=== PATIENT | female | born 1970 | race Caucasian/White ===

== ENCOUNTER → 2022-10-01 | Outpatient (CLI) | payer SELFPAY ==
--- NOTE | 2022-10-01 07:33 | MRI_ITS ---
HISTORY: Neck pain. Occipital pain, right-sided neck pain. TECHNIQUE: Multiplanar and multisequence MR images of the cervical spine were obtained without contrast. 274 images. COMPARISON: None. FINDINGS: VERTEBRAE: Vertebral body heights maintained. Mild degenerative bone marrow endplate changes at multiple levels particularly C3-4. VERTEBRAL ALIGNMENT: No anterior or posterior subluxation. SPINAL CORD: Cervical cord signal within normal limits. Loss of oval cross-sectional shape of the spinal cord at the C2-C3 level with a mild triangular shape. SOFT TISSUES: No prevertebral fluid collection. INTERVERTEBRAL DISCS: C2-3: Developmentally narrow spinal canal. No significant posterior disc protrusion, central canal stenosis, or foraminal narrowing. C3-4: Mild posterior disc bulge osteophyte complex with uncovertebral and facet arthropathy superimposed on a developmentally narrow spinal canal resulting in mild central canal stenosis and right foraminal narrowing. C4-5: Mild posterior disc bulge osteophyte complex with uncovertebral and facet arthropathy superimposed on a developmentally narrow spinal canal resulting in moderate central canal stenosis and right foraminal narrowing. C5-6: Moderate posterior disc bulge osteophyte complex with uncovertebral and facet arthropathy superimposed on a developmentally narrowed spinal canal resulting in moderate-severe central canal stenosis with cord abutment and moderate left foraminal narrowing. C6-7: Mild posterior disc protrusion resulting in minimal narrowing of the thecal sac and no significant foraminal narrowing . C7-T1: No significant posterior disc protrusion, central canal stenosis, or foraminal narrowing. Small right perineural cysts noted. MRI/Spine Cervical (Routine) IMPRESSION: Multilevel degenerative disc disease superimposed on a developmentally narrow spinal canal resulting in moderate to severe spinal canal stenosis, cord abutment, and foraminal narrowing as above. Mild triangular cross-sectional shape of the upper cervical cord which may be secondary to adhesions or mass effect from small arachnoid cyst. Electronically Signed: Farrah Mcneill MD at 12:01 EDT ,
== END | disposition home or self-care (01) ==
PROVIDERS: Referring Provider Family Medicine; Visit Provider Family Medicine
DX: M54.2 Cervicalgia (principal)
CPT/HCPCS: 72141

== ENCOUNTER → 2023-08-11 | Outpatient (CLI) | payer SELFPAY ==
--- NOTE | 2023-08-11 15:50 | MRI_ITS ---
STUDY: MRI BRAIN WITH AND WITHOUT CONTRAST REASON FOR EXAM: Female, 52 years old. R ARM NUMBNESS, MIGRAINE WITH AURA TECHNIQUE: Standardized multiplanar fat and water weighted pulse sequences were obtained. CLARISCAN 11 CC IV was administered for the contrast portion of the examination. COMPARISON: None. FINDINGS: Normal size of the ventricles and extra-axial spaces for the patient''s age. Normal white matter tracts of the supratentorial brain. Normal bilateral basal ganglia. Normal thalami. There is no extra-axial fluid accumulation. Normal flow voids within the major intracranial circulation suggesting patency by spin echo criteria. Normal venous enhancement. There is no enhancing intra-axial or extra-axial abnormality. Normal sella turcica, pituitary gland, infundibular stalk, optic chiasm and hypothalamus. Normal tectal plate and pineal gland. Normal midbrain, trina and medulla. Normal cerebellum. Normal basal cisterns. Normal bilateral temporal bones. Normal bilateral internal auditory canals. No demonstrated orbital abnormality, within the constraints of a routine brain study. Normal visualized paranasal sinuses. Normal calvarium and skull base. Normal visualized soft tissue structures. Normal visualized upper cervical spine. MRI/Brain W/WO Contrast IMPRESSION: Normal unenhanced and enhanced MRI of the brain. Electronically Signed: Chandler George MD at 21:48 EDT ,
--- NOTE | 2023-08-11 16:45 | MRI_ITS ---
STUDY: MRI CERVICAL SPINE WITHOUT CONTRAST REASON FOR EXAM: Female, 52 years old. STENOSIS, PAIN AND NUMBNESS INTO R ARM TECHNIQUE: Standardized fat and water weighted pulse sequences were obtained in the sagittal and axial planes. COMPARISON: October 01, 2022 FINDINGS: Normal foramen magnum and brainstem-cervical cord junction. Normal craniovertebral junction. Normal anterior atlantoaxial articulation. Normal odontoid process. Normal cervical lordosis. Normal vertebral bodies and posterior osseous elements. C2-3: Normal endplates. Normal disc height, signal and morphology. Normal central canal and intervertebral neural foramina. C3-4: Normal endplates. Normal disc height, signal and minimal bulging of the disc with small right posterolateral/foraminal disc/osteophyte protrusion. Normal central canal. Moderate right neural foraminal stenosis C4-5: Normal endplates. Normal disc height, signal and minimal bulging of the disc.. Mild narrowing of the central canal. Mild to moderate bilateral neural foraminal encroachment secondary to bony hypertrophy C5-6: Normal endplates. Normal disc height, signal and tiny left foraminal disc/osteophyte protrusion.. Normal central canal. Moderate left neural foraminal stenosis. C6-7: Normal endplates. Normal disc height, signal and morphology. Normal central canal and intervertebral neural foramina. C7-T1: Normal endplates. Normal disc height, signal and morphology. Normal central canal and intervertebral neural foramina. Normal cervical cord. Normal visualized soft tissue structures. Findings are similar to that seen on prior study MRI/Spine Cervical (Routine) IMPRESSION: No evidence for acute fracture or other significant bony pathology.. Mild multilevel spinal stenosis secondary to disc disease and bony hypertrophy Electronically Signed: Chandler George MD at 21:09 EDT ,
== END | disposition home or self-care (01) ==
PROVIDERS: PCP Family Medicine; Referring Provider Family Medicine; Visit Provider Family Medicine
DX: M48.02 Spinal stenosis, cervical region (principal); R20.0 Anesthesia of skin; G43.109 Migraine with aura, not intractable, without status migrainosus
CPT/HCPCS: 70553; 72141; A9575